=== PATIENT | female | born 1965 | race Hispanic/Latino ===

== ENCOUNTER 2017-05-03 10:26 | Emergency (ER) | payer MEDICARE, MEDICAID ==
[2017-05-03 11:26] VITALS: BP 126/82
--- NOTE | 2017-05-03 12:45 | Emergency Department Report ---
ED Lower Extremity HPI - General Chief Complaint: Extremity Injury, Lower Stated Complaint: BAD ANKLE Time Seen by Provider: 05/03/17 12:44 Source: patient Mode of arrival: Ambulatory Limitations: No Limitations - History of Present Illness MD Complaint: ankle injury -: Sudden Injury: Ankle: Right Type of Injury: blunt Place: other (reports happened at [place]) Severity: moderate Worsens With: weight bearing Context: other (unclear; pt was in seclusion) Associated Symptoms: swelling - Related Data Allergies Allergy/AdvReac Type Severity Reaction Status Date / Time No Known Allergies Allergy Unverified 05/03/17 11:21 ED Review of Systems ROS: Stated complaint: BAD ANKLE Other details as noted in HPI Comment: All other systems reviewed and negative Musculoskeletal: other (r ankle pain) ED Past Medical Hx - Past Medical History Hx Psychiatric Treatment: Yes (BIPOLAR) - Surgical History Additional Surgical History: PARTIAL HYSTO C SECTION JAW WRIST - Family History Family history: no significant - Social History Smoking Status: Current Every Day Smoker ED Physical Exam - General Limitations: No Limitations General appearance: alert - Head Head exam: Present: atraumatic - Eye Eye exam: Present: normal appearance - ENT ENT exam: Present: mucous membranes moist - Neck Neck exam: Present: normal inspection - Respiratory Respiratory exam: Present: normal lung sounds bilaterally - Cardiovascular Cardiovascular Exam: Present: regular rate - GI/Abdominal GI/Abdominal exam: Present: soft - Rectal Rectal exam: Present: deferred - Extremities Exam Extremities exam: Present: tenderness (r lateral ankle), normal capillary refill , joint swelling (r ankle) - Expanded Lower Extremity Exam Right Knee exam: Present: normal inspection Lower Leg exam: Present: normal inspection Ankle exam: Present: tenderness, swelling Neuro vascular tendon exam: Present: no vascular compromise Gait: Positive: observed and limited by pain - Back Exam Back exam: Present: normal inspection - Neurological Exam Neurological exam: Present: alert, oriented X3 - Psychiatric Psychiatric exam: Present: normal affect, normal mood - Skin Skin exam: Present: warm, dry ED Course Vital Signs 05/03/17 11:21 Temperature 98.6 F Pulse Rate 78 Respiratory 18 Rate Blood Pressure 126/82 O2 Sat by Pulse 100 Oximetry - Reevaluation(s) Reevaluation #1: 05/03/17 13:20 co pain w ambul sp while in seclusion at [place] ankle pain lat swelling denies drugs rapid cap refill lateral swelling good pulses dp/pt xray noted motrin for pain dc to rehab for eval oupt p ED Lower Extremity MDM - Radiology Data Radiology results: report reviewed, image reviewed old injury/ arthritic rad read as old fx given swelling will tx - Medical Decision Making see note - Differential Diagnosis ro fx Critical care attestation.: If time is entered above; I have spent that time in minutes in the direct care of this critically ill patient, excluding procedure time. ED Disposition Clinical Impression: Ankle pain Disposition: DC-01 TO HOME OR SELFCARE Is pt being admited?: No Does the pt Need Aspirin: No Condition: Stable Instructions: Arthralgia (ED) Additional Instructions: ice splint crutch motrin or tylenol for pain follow up with ortho for further eval Referrals: PRIMARY CAREMD [Primary Care Provider] - 3-5 Days NADIR EASLEY MD [Staff Physician] - 3-5 Days Time of Disposition: 13:17
--- NOTE | 2017-05-03 13:09 | XRay Report ---
XRAY RIGHT ANKLE THREE VIEWS: 05/03/17 10:26:00 CLINICAL: Swelling. FINDINGS: Status post ORIF distal fibular fracture with no fracture line identified. Old medial malleolus fracture.No acute fracture or dislocation. Tibiotalar joint arthritis and moderate medial and lateral soft tissue swelling. No soft tissue air or foreign body. IMPRESSION: Old fractures, tibiotalar joint arthritis and moderate soft tissue edema.
[2017-05-03] MEDS ORDERED: MOTRIN PO ONE (13:17)
== END 2017-05-03 13:54 | disposition home or self-care (01) ==
LOC: ED 10:26
DX: M25.571 Pain in right ankle and joints of right foot (principal); F17.200 Nicotine dependence, unspecified, uncomplicated